=== PATIENT | female | born 2000 | race Caucasian/White ===

== ENCOUNTER 2018-03-25 18:13 | Emergency (ER) | payer MEDICAID ==
[~2018-03-25] VITALS: Ht 149.9 cm; Wt 42.9 kg
[2018-03-25 18:25] VITALS: BP 108/59
[2018-03-25] MEDS ORDERED: NYST1000 PO (21:08)
== END 2018-03-25 22:31 | disposition home or self-care (01) ==
LOC: ER 18:15
DX: M25.512 Pain in left shoulder (principal); Z53.21 Procedure and treatment not carried out due to patient leaving prior to being seen by health care provider

== ENCOUNTER 2025-04-29 21:12 | Emergency (ER) | payer MEDICAID ==
[~2025-04-29] VITALS: Ht 149.9 cm; Wt 61.0 kg
[2025-04-29 21:34] VITALS: BP 114/73; PULSE 75; RESP 16; O2SAT 98
[2025-04-29] MEDS ORDERED: TRIA15CR61 TOP (22:23)
--- NOTE | 2025-04-29 22:23 | Physician Documentation ---
History of Present Illness ~ Chief Complaint: Itching Stated Complaint: RASH Time Seen by MD: 21:44 HPI Patient is seen today with complaints of itchy rash of her legs and arms after [place]. Patient states she went swimming yesterday and developed a rash today. Patient states it is rather itchy in her feet and arms and legs. Patient denies any fevers or chills and has no other concern or complaint at this time. Medication Reconciliation Allergies: Coded Allergies: No Known Allergies (Unverified , 03/25/18) Review of Systems Constitutional: Denies: chills, fever, weakness Eyes: Denies: pain, blurred vision ENT: Denies: ear pain, nose pain, throat pain, mouth pain Respiratory: Denies: cough, shortness of breath Cardiovascular: Denies: chest pain, palpitations Gastrointestinal: Denies: abdominal pain, nausea, vomiting Genitourinary: Denies: burning, dysuria Female Genitalia: Denies: vaginal discharge, pelvic pain Neurological: Denies: headache, dizziness Musculoskeletal: Denies: pain, swelling Integumentary: Denies: rash, lesions Allergic/Immunologic: Denies: hives, itching Hematologic/Lymphatic: Denies: no symptoms reported Psychiatric: Denies: depression, anxiety Physical Exam Vital Signs: Temperature: 98.1, Source: Temporal, Heart Rate: 75, Respiratory Rate: 16, BP: 114/73, Pulse Oximetry: 98, Weight: 61.000 Oxygen Flow Rate: 0 Physical Exam General: Awake and Alert, no acute distress. HEENT: Conjunctiva pink, Sclera clear, Mucus Membranes moist. Neck: Supple without masses and tenderness. Resp: Unlabored. Lungs clear to auscultation bilaterally. Heart: Regular Rate and rhythm, normal S1 and S2 without murmur, rub or gallop. Extremities: No cyanosis,clubbing or edema. Skin: Patient on exam does have erythematous lesions some of them with almost vesicle formation of the feet soles of the feet and legs and arms. There does not appreciate any sign of cellulitis or induration of the skin or infection. Progress Results/Orders Results/Orders Vital Signs 04/29/25 21:34 Temp 98.1 Pulse 75 Resp 16 B/P (MAP) 114/73 Pulse Ox 98 O2 Flow Rate 0 Medical Decision Making Findings Patient is seen today with complaints of itchy rash of her legs and arms after swimming and [employer] [place]. Patient states she went swimming yesterday and developed a rash today. Patient states it is rather itchy in her feet and arms and legs. Patient denies any fevers or chills and has no other concern or complaint at this time. Patient was given Kenalog 40 mg IM injection in the ED tonight. Prescription of triamcinolone topical cream 0.5% sent to patient pharmacy. Patient may also take Benadryl as needed itch. Return to ED with any worsening, concerning or changing symptoms. Departure Disposition: HOME / SELF CARE / HOMELESS Impression: Primary Impression: Itching Additional Impression: Swimmer itch Condition: Stable Additional Instructions: Patient is seen today with complaints of itchy rash of her legs and arms after swimming and [employer] [place]. Patient states she went swimming yesterday and developed a rash today. Patient states it is rather itchy in her feet and arms and legs. Patient denies any fevers or chills and has no other concern or complaint at this time. Referrals: NO PRIMARY CARE PROVIDER (PCP) Prescriptions Triamcinolone Acetonide 0.5% Crm* (Kenalog 0.5% Crm*) 15 Gm Tube 1 APPLIC TOP Q12H for 14 Days, #30 GM apply to affected area(s) Prov: LELAND ALAMO 04/29/25 Signature Scribe Signature: No scribe Attestation: No scribe LELAND ALAMO Apr 29, 2025 22:23
[2025-04-29 22:25] VITALS: TEMP 98.1
[2025-04-29] MEDS ORDERED: triamcinolone acetonide 40mg/ml inj ONE (22:48)
[2025-04-29] MEDS: triamcinolone acetonide 40mg/ml inj IM STA (22:54)
[2025-04-30] MEDS ORDERED: PERM60CR27 TOP (03:32)
== END 2025-04-29 22:59 | disposition home or self-care (01) ==
LOC: ER 21:13
DX: L29.9 Pruritus, unspecified (principal)
CPT/HCPCS: 96372; 99283; J3301; Q0163

== ENCOUNTER 2025-04-30 01:02 | Emergency (ER) | payer MEDICAID ==
[~2025-04-30] VITALS: Ht 149.9 cm; Wt 60.9 kg
[~2025-04-30 01:02] MED LIST: TRIA15CR61 TOP
[2025-04-30 01:17] VITALS: BP 121/84; PULSE 82; RESP 16; TEMP 98.8; O2SAT 98
--- NOTE | 2025-04-30 02:27 | Physician Documentation ---
History of Present Illness ~ Chief Complaint: Itching Stated Complaint: RECHECK Time Seen by MD: 02:26 OK to notify your PCP?: Yes Source: patient, RN/MD, RN notes reviewed, old records Mode of Arrival: POV Exam Limitations: no limitations HPI 24 year old female presents to the emergency department for complaints of an itch that began yesterday. She states that she was swimming in [place] yesterday and since then she has been itching and complains of a rash centered on her hands, feet and mouth. It also presents dispersed on her thighs and arms. She solely complains of itching. She states that she tried an epsom salt bath to no avail. She denies any fevers, aches or pain. She was seen earlier today and given a kenalog injection and Benadryl but denies any effectiveness. Medication Reconciliation Allergies: Coded Allergies: No Known Allergies (Unverified , 04/30/25) Scheduled Permethrin 5% Cream* (Elimite 5% Cream*), 1 APPLIC TOP ONCE Triamcinolone Acetonide 0.5% Crm* (Kenalog 0.5% Crm*), 1 APPLIC TOP Q12H Past Medical History Past Medical History: No Pertinent History Past Surgical History: no surgical history Smoking Status: Never smoker Alcohol Use: Occasionally Drug Use: none Review of Systems All Other Systems at this time: Reviewed and Negative ROS As stated above in the HPI, otherwise all systems are reviewed and negative. Physical Exam Vital Signs: RN Vital Signs have been reviewed: Yes, Temperature: 98.8, Source: Temporal, Heart Rate: 82, Respiratory Rate: 16, BP: 121/84, Pulse Oximetry: 98, Weight: 60.850 Oxygen Flow Rate: 0 Pulse Oximetry Reflects: adequate oxygenation Physical Exam General: The patient is well developed, well nourished, nontoxic appearing and is in no acute distress. Skin: Non blanching lesions to hand and feet primarily diffuse areas of legs. [place], warm and dry. HEENT: Head was normocephalic and atraumatic. Eyes - pupils equal, round, reactive to light and accommodation. Extraocular movements were intact. Conjunctivae were nonicteric. Ears - bilateral tympanic membranes were normal. The mouth and oropharynx were clear with moist mucous membranes. There were no pharyngeal exudates or erythema. Neck: Supple and nontender. There was no jugular venous distention, lymphadenopathy, thyromegaly or masses. Chest: Clear to auscultation bilaterally without wheezes, rales or rhonchi. No accessory muscle use. No dullness to percussion. Heart: Rate regular and rhythmic. S1, S2. No murmurs. Palpation of the chest wall was normal. No rubs or thrills. Abdomen: Soft, nontender and nondistended. Positive bowel sounds. No guarding or rebound. No hepatosplenomegaly or palpable masses. Extremities: No cyanosis, clubbing or edema. The patient moves all extremities. Pulses were equal and symmetric. Neurologic: Cranial nerves II-XII were intact. Sensation was intact to light touch throughout. Motor strength was 5/5 in all four extremities. Deep tendon reflexes were intact in both upper and lower extremities. Psychologic: The patient was oriented to person, place and time. The patient demonstrated appropriate judgement and insight. Progress Results/Orders Reviewed/noted all lab results: Yes Results/Orders Completed Orders - MANOHAR ORDOÑEZ MD Diphenhydramine Capsule (Benadryl Capsul (04/30/25 03:35) Medications Received in ER Medications (Trade) Dose Ordered Sig/Juan Francisco Route PRN Reason Start Time Stop Time Status Last Admin Dose Admin (Benadryl capsule) 50 mg ONCE ONCE PO 04/30/25 03:35 04/30/25 03:46 DC 04/30/25 03:54 50 MG Vital Signs 04/30/25 01:17 Temp 98.8 Pulse 82 Resp 16 B/P (MAP) 121/84 Pulse Ox 98 O2 Flow Rate 0 Re-Evaluation Re-Evaluation : Re-Evaluation: Improved Progress Patient was seen and examined. Patient was given reassurance. Patient's rash is nonspecific. She fits the clinical history of swimmer's rash. Patient received steroids Benadryl and steroid cream but continues to have a severe rash. She actually was in the bathtub with Epsom salt but does not feel any better. She states she has had scabies in the past and she feels as if this is the same type of itch that she has had before. The patient is requesting treatment. Rash seems to be limited mostly on her hands feet and lips she denies any viral symptoms no fevers. As far as scabies there was no history of exposure and no linear rm. Patient was given Benadryl and was discharged home she also received a prescription of Elimite to rule out other etiologies of her rash. Otherwise continue taking Benadryl at home. Medical Decision Making Additional info obtained from: old records Differential Dx:Considerations: Include: Contact dermatitis, Drug reaction, Erythema multiforme, Molluscum contagiosum, Scabies, Tinea, Urticaria, Viral exanthema, Other Departure Time of Disposition: 03:35 Disposition: 01 HOME / SELF CARE / HOMELESS Impression: Primary Impression: Swimmer itch Additional Impression: Itching Condition: Stable Discharge Instructions: Swimmer's Itch Referrals: NO PRIMARY CARE PROVIDER (PCP) Prescriptions Permethrin 5% Cream* (Elimite 5% Cream*) 60 Gm Cream.gm. 1 APPLIC TOP ONCE, #60 GM massage into skin from head to soles of feet one time, leave on for 8-14 hours then remove by thorough washing Prov: MANOHAR ORDOÑEZ MD 04/30/25 Education Educated: Patient Educated regarding: diagnosis, need for follow up, other Signature Scribe Signature: Scribed for Manohar Ordoñez MD by Augustin Quintana . 04/30/25 02:47 Attestation: The note accurately reflects work and decisions made by me.Manohar Ordoñez MD 04/30/25 02:27 MANOHAR ORDOÑEZ MD Apr 30, 2025 02:27 AUGUSTIN DE LA O Apr 30, 2025 02:47
[2025-04-30] MEDS ORDERED: PERM60CR27 TOP (03:32)
== END 2025-04-30 04:00 | disposition home or self-care (01) ==
LOC: ER 01:02
DX: L29.9 Pruritus, unspecified (principal); Z72.89 Other problems related to lifestyle; Z79.899 Other long term (current) drug therapy
CPT/HCPCS: 99282; Q0163